=== PATIENT | male | born 1990 | race Caucasian/White ===

== ENCOUNTER 2022-05-31 22:57 | Emergency (ER) | payer SELFPAY ==
[~2022-05-31] VITALS: Ht 170.2 cm; Wt 115.7 kg
[2022-05-31 23:43] VITALS: BP 142/79
--- NOTE | 2022-05-31 23:45 | NUR ---
Patient waited inside his car with his family.
--- NOTE | 2022-06-01 02:46 | NUR ---
Dr. Sweet examining patient.
[2022-06-01] MEDS ORDERED: METH4TAB1 PO (02:52)
[2022-06-01] MEDS ORDERED: BENZ200C4 PO (02:52)
[2022-06-01 02:55] VITALS: BP 142/79
--- NOTE | 2022-06-01 02:55 | NUR ---
Patient discharged with v/s stable. Written and verbal after care instructions given and explained. Patient alert, oriented and verbalized understanding of instructions. Ambulatory with steady gait. All questions addressed prior to discharge. ID band removed. Patient advised to follow up with PMD. Rx of BENZONATATE, MEDROL given. Patient educated on indication of medication including possible reaction and side effects. Opportunity to ask questions provided and answered.
== END 2022-06-01 02:55 | disposition home or self-care (01) ==
LOC: MED 22:57
DX: J06.9 Acute upper respiratory infection, unspecified (principal); I10 Essential (primary) hypertension; Z79.899 Other long term (current) drug therapy
CPT/HCPCS: 99283